=== PATIENT | female | born 1970 | race African-American/Black ===

== ENCOUNTER 2018-01-18 10:05 | Emergency (ER) | payer MEDICARE ==
[~2018-01-18] VITALS: Ht 170.2 cm; Wt 85.0 kg
[2018-01-18 10:08] VITALS: BP 138/98
[2018-01-18] MEDS ORDERED: ZPAK PO (10:27)
== END 2018-01-18 10:35 | disposition home or self-care (01) ==
LOC: ED 10:05
DX: J06.9 Acute upper respiratory infection, unspecified (principal); L60.8 Other nail disorders; F17.210 Nicotine dependence, cigarettes, uncomplicated

== ENCOUNTER 2018-06-03 15:59 | Observation (INO) | payer MEDICARE, MEDICAID ==
[~2018-06-03] VITALS: Ht 170.2 cm; Wt 74.0 kg
[~2018-06-03 15:59] MED LIST: ZPAK PO
[2018-06-03 17:07] LABS: HEMATOCRIT 25.1 % (37.0-47.0); HEMOGLOBIN 7.5 g/dl (12.0-16.0); IMMATURE GRANULOCYTES 0.2 % (0.0-5.0); MEAN CELL VOLUME 64.5 fL CALC (80.0-100.0); MEAN CORPUSCULAR HGB 19.3 pG CALC (26.0-32.0); MEAN CORPUSCULAR HGB CONC 29.9 g/L CALC (32.0-36.0); NEUT# 2.58 thou/uL (2.00-7.15); RED BLOOD COUNT 3.89 mill/uL (4.20-5.60); RED CELL DISTRI WIDTH 21.2 % (11.5-15.5)
[2018-06-03 17:16] LABS: ALBUMIN 4.4 g/dL (3.2-5.0); ALKALINE PHOSPHATASE 58 u/l (38-126); ANION GAP 15 (6-22 (CALC)); BILIRUBIN, TOTAL 0.3 mg/dL (0.0-1.4); BUN 15 mg/dL (7-17); BUN/CREATININE RATIO 13 (12-20 (CALC)); CARBON DIOXIDE 21 mmol/l (22-30); CHLORIDE 109 mmol/l (95-108); CREATININE 1.1 mg/dL (0.5-1.0); GFR 53 ML/MIN (>=60 (CALC)); GFR FOR AFR.AMER. > 60 ML/MIN (>=60 (CALC)); SGOT/AST 23 u/l (14-36); SODIUM 141 mmol/l (137-146); TOTAL PROTEIN 7.4 g/dL (6.3-8.2)
[2018-06-03 17:20] LABS: POTASSIUM 4.1 mmol/l (3.5-5.1)
[2018-06-03 21:15] VITALS: BP 125/84
[2018-06-04] VITALS (11 sets, daily range): BP systolic 124–142; BP diastolic 62–98
[2018-06-04 05:29] LABS: CHOLESTEROL HDL RATIO 1.6 (<4.4 (CALC))
[2018-06-04 13:32] LABS: HEMOGLOBIN 7.2 g/dl (12.0-16.0); IMMATURE GRANULOCYTES 0.2 % (0.0-5.0); MEAN CELL VOLUME 64.6 fL CALC (80.0-100.0); MEAN CORPUSCULAR HGB 18.6 pG CALC (26.0-32.0); MEAN CORPUSCULAR HGB CONC 28.8 g/L CALC (32.0-36.0); NEUT# 2.38 thou/uL (2.00-7.15); RED BLOOD COUNT 3.87 mill/uL (4.20-5.60); RED CELL DISTRI WIDTH 21.5 % (11.5-15.5)
[2018-06-04 14:18] LABS: ANION GAP 14 (6-22 (CALC)); BUN 14 mg/dL (7-17); BUN/CREATININE RATIO 13 (12-20 (CALC)); CARBON DIOXIDE 22 mmol/l (22-30); CHLORIDE 107 mmol/l (95-108); CREATININE 1.1 mg/dL (0.5-1.0); GFR 53 ML/MIN (>=60 (CALC)); GFR FOR AFR.AMER. > 60 ML/MIN (>=60 (CALC)); POTASSIUM 4.6 mmol/l (3.5-5.1); SODIUM 139 mmol/l (137-146)
[2018-06-05 04:00] VITALS: BP 126/83
[2018-06-05 05:44] LABS: IMMATURE GRANULOCYTES 0.2 % (0.0-5.0); MEAN CORPUSCULAR HGB 20.8 pG CALC (26.0-32.0); MEAN CORPUSCULAR HGB CONC 30.3 g/L CALC (32.0-36.0); NEUT# 3.63 thou/uL (2.00-7.15); RED BLOOD COUNT 4.57 mill/uL (4.20-5.60); RED CELL DISTRI WIDTH 24.1 % (11.5-15.5)
[2018-06-05 05:47] LABS: HEMATOCRIT 31.4 % (37.0-47.0); HEMOGLOBIN 9.5 g/dl (12.0-16.0); MEAN CELL VOLUME 68.7 fL CALC (80.0-100.0)
[2018-06-05 06:12] LABS: ALBUMIN 3.8 g/dL (3.2-5.0); ALKALINE PHOSPHATASE 60 u/l (38-126); ANION GAP 13 (6-22 (CALC)); BILIRUBIN, TOTAL 0.7 mg/dL (0.0-1.4); BUN 11 mg/dL (7-17); BUN/CREATININE RATIO 10 (12-20 (CALC)); CARBON DIOXIDE 23 mmol/l (22-30); CHLORIDE 109 mmol/l (95-108); CREATININE 1.1 mg/dL (0.5-1.0); GFR 53 ML/MIN (>=60 (CALC)); GFR FOR AFR.AMER. > 60 ML/MIN (>=60 (CALC)); MAGNESIUM 1.8 mg/dL (1.6-2.3); POTASSIUM 4.9 mmol/l (3.5-5.1); SGOT/AST 34 u/l (14-36); SODIUM 140 mmol/l (137-146); TOTAL PROTEIN 6.6 g/dL (6.3-8.2)
[2018-06-05 08:26] VITALS: BP 137/89
== END 2018-06-05 11:58 | disposition home or self-care (01) ==
LOC: ED 15:59 → ED-I 18:45 → ED 19:11 → MS2 19:12
PROVIDERS: Emergency Medicine; Internal Medicine Nephrology; ADMIT Internal Medicine; ATTEND Internal Medicine
PROC: 3E02340 Introduction of Influenza Vaccine into Muscle, Percutaneous Approach (ICD-10-PCS; principal; 2018-06-04)
PROC: 30233N1 Transfusion of Nonautologous Red Blood Cells into Peripheral Vein, Percutaneous Approach (ICD-10-PCS; 2018-06-04)
PROC: 30233N1 Transfusion of Nonautologous Red Blood Cells into Peripheral Vein, Percutaneous Approach (ICD-10-PCS; 2018-06-04)
PROC: 3E0234Z Introduction of Serum, Toxoid and Vaccine into Muscle, Percutaneous Approach (ICD-10-PCS; 2018-06-05)
DX: D64.9 Anemia, unspecified (principal); N92.1 Excessive and frequent menstruation with irregular cycle; Z23 Encounter for immunization
CPT/HCPCS: P9016

== ENCOUNTER 2018-06-17 21:41 | Emergency (ER) | payer MEDICARE, MEDICAID ==
[~2018-06-17] VITALS: Ht 170.2 cm; Wt 75.4 kg
[2018-06-17 23:31] LABS: HEMATOCRIT 30.3 % (37.0-47.0); HEMOGLOBIN 9.2 g/dl (12.0-16.0); IMMATURE GRANULOCYTES 0.3 % (0.0-5.0); MEAN CELL VOLUME 70.1 fL CALC (80.0-100.0); MEAN CORPUSCULAR HGB 21.3 pG CALC (26.0-32.0); MEAN CORPUSCULAR HGB CONC 30.4 g/L CALC (32.0-36.0); RED BLOOD COUNT 4.32 mill/uL (4.20-5.60)
[2018-06-17 23:33] LABS: URINE BILIRUBIN - DIPSTICK NEGATIVE (NEGATIVE); URINE BLOOD DIPSTICK LARGE (NEGATIVE); URINE COLOR YELLOW; URINE GLUCOSE - DIPSTICK NEGATIVE (NEGATIVE); URINE KETONE NEGATIVE (NEGATIVE); URINE LEUK ESTERASE NEGATIVE (NEGATIVE); URINE NITRITE - DIPSTICK NEGATIVE (Negative); URINE PROTEIN - DIPSTICK 30 mg/dL (NEG-TRACE); URINE SPECIFIC GRAVITY 1.025; URINE UROBILINOGEN - DIPSTICK 0.2 E.U./dL (0.2)
[2018-06-17 23:46] LABS: URINE BACTERIA RARE hpf; URINE MUCUS FEW hpf (NONE-FEW); URINE RBC >100 RBC/hpf (0-5); URINE SQUAMOUS EPITHELIAL CELL RARE EPI/hpf (0-FEW); URINE WBC 0-2 WBC/hpf (0-5)
[2018-06-17 23:47] LABS: ALBUMIN 4.5 g/dL (3.2-5.0); ALKALINE PHOSPHATASE 70 u/l (38-126); ANION GAP 13 (6-22 (CALC)); BILIRUBIN, TOTAL 0.2 mg/dL (0.0-1.4); BUN 18 mg/dL (7-17); BUN/CREATININE RATIO 19 (12-20 (CALC)); CARBON DIOXIDE 24 mmol/l (22-30); CHLORIDE 106 mmol/l (95-108); CREATININE 0.9 mg/dL (0.5-1.0); GFR > 60 ML/MIN (>=60 (CALC)); GFR FOR AFR.AMER. > 60 ML/MIN (>=60 (CALC)); SGOT/AST 18 u/l (14-36); SODIUM 139 mmol/l (137-146); TOTAL PROTEIN 7.6 g/dL (6.3-8.2)
[2018-06-17 23:58] LABS: POTASSIUM 3.9 mmol/l (3.5-5.1)
[2018-06-18 00:25] VITALS: BP 137/75
== END 2018-06-18 00:20 | disposition home or self-care (01) ==
LOC: ED 21:41
PROVIDERS: Emergency Medicine
DX: N93.8 Other specified abnormal uterine and vaginal bleeding (principal); F32.9 Major depressive disorder, single episode, unspecified; Z91.19 Patient's noncompliance with other medical treatment and regimen

== ENCOUNTER → 2018-07-23 | Outpatient (REF) | payer MEDICARE, MEDICAID ==
[~2018-07-23] MED LIST changes: +EQL IRON SUPPL325 M1 PO; +NORETHINDRONE0.35 MG PO; +VITAMIN C1000 MG PO
[2018-07-23 10:38] LABS: HEMATOCRIT 32.4 % (37.0-47.0); HEMOGLOBIN 9.4 g/dl (12.0-16.0); IMMATURE GRANULOCYTES 0.2 % (0.0-5.0); MEAN CORPUSCULAR HGB 20.9 pG CALC (26.0-32.0); NEUT# 2.42 thou/uL (2.00-7.15); RED BLOOD COUNT 4.5 mill/uL (4.20-5.60); RED CELL DISTRI WIDTH 25.8 % (11.5-15.5)
[2018-07-23 11:24] LABS: ALBUMIN 4.4 g/dL (3.2-5.0); ALKALINE PHOSPHATASE 72 u/l (38-126); ANION GAP 15 (6-22 (CALC)); BILIRUBIN, TOTAL 0.2 mg/dL (0.0-1.4); BUN 13 mg/dL (7-17); BUN/CREATININE RATIO 12 (12-20 (CALC)); CALCULATED LDLCHOLESTEROL 46 mg/dL (62-129 (CALC)); CARBON DIOXIDE 23 mmol/l (22-30); CHLORIDE 106 mmol/l (95-108); CHOLESTEROL HDL RATIO 1.6 (<4.4 (CALC)); GFR 59 ML/MIN (>=60 (CALC)); GFR FOR AFR.AMER. > 60 ML/MIN (>=60 (CALC)); HDL CHOLESTEROL 82 mg/dL (>=40); POTASSIUM 4.1 mmol/l (3.5-5.1); SGOT/AST 21 u/l (14-36); SODIUM 140 mmol/l (137-146); TOTAL CHOLESTEROL 134 mg/dl (0-199); TOTAL PROTEIN 7.5 g/dL (6.3-8.2); TOTAL TRIGLYCERIDES 32 mg/dl (30-149); VLDL CHOLESTROL 6 mg/dl (1-41 (CALC))
[2018-07-23 12:13] LABS: TSH, 3RD GENERATION 7.65 uIU/mL (0.47 - 4.68)
== END | disposition home or self-care (01) ==
LOC: LAB 09:33
PROVIDERS: ATTEND Physician Assistant Medical
DX: N93.8 Other specified abnormal uterine and vaginal bleeding (principal); D64.9 Anemia, unspecified; Z13.228 Encounter for screening for other metabolic disorders; R53.83 Other fatigue

== ENCOUNTER 2018-07-29 14:39 | Emergency (ER) | payer MEDICARE, MEDICAID ==
[~2018-07-29] VITALS: Ht 170.2 cm; Wt 75.5 kg
[~2018-07-29 14:39] MED LIST changes: -EQL IRON SUPPL325 M1 PO; -NORETHINDRONE0.35 MG PO; -VITAMIN C1000 MG PO
[2018-07-29] MEDS ORDERED: EQL IRON SUPPL325 M1 PO (16:08)
[2018-07-29] MEDS ORDERED: VITAMIN C1000 MG PO (16:10)
[2018-07-29] MEDS ORDERED: NORETHINDRONE0.35 MG PO (16:10)
[2018-07-29 16:31] LABS: HEMATOCRIT 32.1 % (37.0-47.0); HEMOGLOBIN 9.4 g/dl (12.0-16.0); IMMATURE GRANULOCYTES 0.4 % (0.0-5.0); MEAN CELL VOLUME 75.2 fL CALC (80.0-100.0); MEAN CORPUSCULAR HGB CONC 29.3 g/L CALC (32.0-36.0); NEUT# 2.83 thou/uL (2.00-7.15); RED BLOOD COUNT 4.27 mill/uL (4.20-5.60); RED CELL DISTRI WIDTH 29.2 % (11.5-15.5)
[2018-07-29 16:35] LABS: URINE BILIRUBIN - DIPSTICK NEGATIVE (NEGATIVE); URINE BLOOD DIPSTICK MODERATE (NEGATIVE); URINE COLOR YELLOW; URINE GLUCOSE - DIPSTICK NEGATIVE (NEGATIVE); URINE KETONE NEGATIVE (NEGATIVE); URINE LEUK ESTERASE NEGATIVE (NEGATIVE); URINE NITRITE - DIPSTICK NEGATIVE (Negative); URINE PROTEIN - DIPSTICK NEGATIVE (NEG-TRACE); URINE UROBILINOGEN - DIPSTICK 0.2 E.U./dL (0.2)
[2018-07-29 16:46] LABS: URINE SQUAMOUS EPITHELIAL CELL FEW EPI/hpf (0-FEW); URINE WBC 0-2 WBC/hpf (0-5)
[2018-07-29 16:50] LABS: ALBUMIN 4.2 g/dL (3.2-5.0); ALKALINE PHOSPHATASE 60 u/l (38-126); ANION GAP 13 (6-22 (CALC)); BILIRUBIN, TOTAL 0.2 mg/dL (0.0-1.4); BUN 13 mg/dL (7-17); BUN/CREATININE RATIO 14 (12-20 (CALC)); CARBON DIOXIDE 24 mmol/l (22-30); CHLORIDE 106 mmol/l (95-108); CREATININE 0.9 mg/dL (0.5-1.0); GFR > 60 ML/MIN (>=60 (CALC)); GFR FOR AFR.AMER. > 60 ML/MIN (>=60 (CALC)); POTASSIUM 3.9 mmol/l (3.5-5.1); SGOT/AST 21 u/l (14-36); SODIUM 139 mmol/l (137-146); TOTAL PROTEIN 7.4 g/dL (6.3-8.2)
[2018-07-29 18:35] VITALS: BP 155/85
== END 2018-07-29 18:54 | disposition home or self-care (01) ==
LOC: ED 14:39
PROVIDERS: Family Medicine
DX: N92.0 Excessive and frequent menstruation with regular cycle (principal); D25.9 Leiomyoma of uterus, unspecified; R42 Dizziness and giddiness; D64.9 Anemia, unspecified; F17.210 Nicotine dependence, cigarettes, uncomplicated

== ENCOUNTER 2019-01-26 14:15 | Emergency (ER) | payer MEDICARE, MEDICAID ==
[~2019-01-26 14:15] MED LIST changes: +EQL IRON SUPPL325 M1 PO; +NORETHINDRONE0.35 MG PO; +VITAMIN C1000 MG PO
== END 2019-01-26 14:22 | disposition left against medical advice (07) ==
LOC: ED 14:15 → LWOBS 14:21
DX: Z91.19 Patient's noncompliance with other medical treatment and regimen (principal)

== ENCOUNTER 2020-11-22 12:55 | Emergency (ER) | payer MEDICARE, MEDICAID | END 2020-11-22 13:12 | disposition left against medical advice (07) | LOC: ED 12:55 → LWOBS 13:11 | DX: Z53.21 Procedure and treatment not carried out due to patient leaving prior to being seen by health care provider (principal) ==

== ENCOUNTER 2020-12-14 15:20 | Emergency (ER) | payer MEDICARE, MEDICAID ==
[2020-12-14] MEDS ORDERED: HYDROCHLOROT25 MG PO (16:46)
[2020-12-14] MEDS ORDERED: [UNRECOGNIZED DRUG - OTHER] PO (16:46)
[2020-12-14] MEDS ORDERED: VITAMIN C500 M1 PO (16:47)
[2020-12-14] MEDS ORDERED: IBUPROFEN600 MG PO (19:09)
[2020-12-14 19:15] VITALS: BP 116/64
== END 2020-12-14 19:15 | disposition home or self-care (01) ==
LOC: ED 15:20
DX: M72.2 Plantar fascial fibromatosis (principal); F32.9 Major depressive disorder, single episode, unspecified; F17.210 Nicotine dependence, cigarettes, uncomplicated; M79.89 Other specified soft tissue disorders

== ENCOUNTER 2021-08-20 11:53 | Emergency (ER) | payer MEDICARE, MEDICAID ==
[~2021-08-20] VITALS: Ht 170.2 cm; Wt 91.0 kg
[2021-08-20] VITALS (7 sets, daily range): BP systolic 102–126; BP diastolic 65–79
[~2021-08-20 11:53] MED LIST changes: +HYDROCHLOROT25 MG PO; +IBUPROFEN600 MG PO; +VITAMIN C500 M1 PO; +[UNRECOGNIZED DRUG - OTHER] PO
[2021-08-20 12:41] LABS: HEMATOCRIT 42.8 % (37.0-47.0); HEMOGLOBIN 13.7 g/dl (12.0-16.0); IMMATURE GRANULOCYTES 0.2 % (0.0-5.0); MEAN CELL VOLUME 85.6 fL CALC (80.0-100.0); MEAN CORPUSCULAR HGB 27.4 pG CALC (26.0-32.0); NEUT# 2.18 thou/uL (2.00-7.15); RED CELL DISTRI WIDTH 13.6 % (11.5-15.5)
[2021-08-20 13:03] LABS: ALBUMIN 4.1 g/dL (3.2-5.0); CREATININE 1.3 mg/dL (0.5-1.0); POTASSIUM 3.4 mmol/l (3.5-5.1); TOTAL PROTEIN 7.3 g/dL (6.3-8.2)
[2021-08-20 13:24] LABS: BILIRUBIN, TOTAL 0.3 mg/dL (0.0-1.4)
[2021-08-20] MEDS ORDERED: TRAMADOL HCL50 MG PO (13:49)
== END 2021-08-20 14:03 | disposition home or self-care (01) ==
LOC: ED 11:53
PROVIDERS: Nurse Practitioner
DX: M77.32 Calcaneal spur, left foot (principal); Z87.39 Personal history of other diseases of the musculoskeletal system and connective tissue

== ENCOUNTER 2022-02-22 12:06 | Emergency (ER) | payer MEDICARE, MEDICAID ==
[~2022-02-22] VITALS: Ht 170.2 cm; Wt 90.9 kg
[~2022-02-22 12:06] MED LIST changes: +TRAMADOL HCL50 MG PO
[2022-02-22 12:26] VITALS: BP 117/71
[2022-02-22 12:30] VITALS: BP 115/70
[2022-02-22 12:46] VITALS: BP 113/71
[2022-02-22 13:01] VITALS: BP 117/72
[2022-02-22 13:16] VITALS: BP 102/71
[2022-02-22] MEDS ORDERED: NAPROXEN250 MG PO ×2 (14:21→14:42)
[2022-02-22] MEDS ORDERED: ULTRAM50 M1 PO ×2 (14:21→14:42)
[2022-02-22 14:44] VITALS: BP 102/71
== END 2022-02-22 14:44 | disposition home or self-care (01) ==
LOC: ED 12:06
DX: M77.32 Calcaneal spur, left foot (principal); I10 Essential (primary) hypertension; E66.01 Morbid (severe) obesity due to excess calories; F32.A Depression, unspecified; F17.200 Nicotine dependence, unspecified, uncomplicated

== ENCOUNTER 2022-02-26 15:23 | Emergency (ER) | payer MEDICARE, MEDICAID ==
[2022-02-26] VITALS (11 sets, daily range): BP systolic 100–131; BP diastolic 54–88
[~2022-02-26] VITALS: Ht 170.2 cm; Wt 97.0 kg
[~2022-02-26 15:23] MED LIST changes: +NAPROXEN250 MG PO; +ULTRAM50 M1 PO
[2022-02-26 16:02] LABS: HEMATOCRIT 41.3 % (37.0-47.0); HEMOGLOBIN 13.3 g/dl (12.0-16.0); MEAN CELL VOLUME 85.2 fL CALC (80.0-100.0); MEAN CORPUSCULAR HGB 27.4 pG CALC (26.0-32.0); MEAN CORPUSCULAR HGB CONC 32.2 g/dL CAL (32.0-36.0); NEUT# 3.44 thou/uL (2.00-7.15); RED BLOOD COUNT 4.85 mill/uL (4.20-5.60); RED CELL DISTRI WIDTH 14.3 % (11.5-15.5)
[2022-02-26 16:06] LABS: URINE BILIRUBIN - DIPSTICK NEGATIVE (NEGATIVE); URINE BLOOD DIPSTICK NEGATIVE (NEGATIVE); URINE COLOR YELLOW; URINE GLUCOSE - DIPSTICK NEGATIVE (NEGATIVE); URINE KETONE NEGATIVE (NEGATIVE); URINE LEUK ESTERASE NEGATIVE (NEGATIVE); URINE PH 7.5 (4.5-8.0); URINE PROTEIN - DIPSTICK NEGATIVE (NEG-TRACE); URINE SPECIFIC GRAVITY 1.025; URINE UROBILINOGEN - DIPSTICK 0.2 E.U./dL (0.2)
[2022-02-26 16:08] LABS: URINE NITRITE - DIPSTICK NEGATIVE (Negative)
[2022-02-26 16:30] LABS: ALBUMIN 4.4 g/dL (3.2-5.0); ALKALINE PHOSPHATASE 93 u/l (38-126); ANION GAP 15 (6-22 (CALC)); BILIRUBIN, TOTAL 0.3 mg/dL (0.0-1.4); BUN 17 mg/dL (7-17); BUN/CREATININE RATIO 16 (12-20 (CALC)); CARBON DIOXIDE 30 mmol/l (22-30); CHLORIDE 98 mmol/l (95-108); CREATININE 1.1 mg/dL (0.5-1.0); GFR FOR AFR.AMER. > 60 ML/MIN (>=60 (CALC)); GFR OTHER RACES 52 ML/MIN (>=60 (CALC)); LIPASE 269 u/l (23-300); POTASSIUM 3.8 mmol/l (3.5-5.1); SGOT/AST 48 u/l (14-36); SODIUM 139 mmol/l (137-146); TOTAL PROTEIN 8.3 g/dL (6.3-8.2)
== END 2022-02-26 19:28 | disposition left against medical advice (07) ==
LOC: ED 15:23
PROVIDERS: Family Medicine
DX: R42 Dizziness and giddiness (principal); I10 Essential (primary) hypertension; F32.A Depression, unspecified; F17.200 Nicotine dependence, unspecified, uncomplicated; Z53.29 Procedure and treatment not carried out because of patient's decision for other reasons